=== PATIENT | male | born 1970 | race Caucasian/White ===

== ENCOUNTER 2020-04-08 04:46 | Emergency (ER) | payer SELFPAY ==
[~2020-04-08] VITALS: Ht 167.6 cm; Wt 74.8 kg
[2020-04-08 05:01] LABS: BILIRUBIN NEGATIVE; BLOOD NEGATIVE (NEGATIVE); CLARITY CLEAR (CLEAR); COLOR YELLOW (YELLOW); GLUCOSE NEGATIVE; KETONE NEGATIVE; LEUKO ESTERASE NEGATIVE (NEGATIVE); NITRITE NEGATIVE (NEGATIVE)
[2020-04-08 05:08] LABS: BACTERIA TRACE; EPITHELIAL CELLS 0-2; HYALINE CAST 16-20; MUCOUS 1+; WBC 0-2 wbc/hpf (0-5)
[2020-04-08 05:09] LABS: URINE AMPHETAMINES > 1000 (1000ng/ml); URINE BARBITURATES < 200 (200ng/ml); URINE BENZODIAZEPINES < 200 (200ng/ml); URINE CANNABINOIDS (THC) > 50 (50ng/ml); URINE COCAINE < 300 (300ng/ml); URINE METHADONE < 300 (300ng/ml); URINE OPIATES < 300 (300ng/ml); URINE PHENCYCLIDINE < 25 (25ng/ml)
== END 2020-04-08 05:48 | disposition left against medical advice (07) ==
LOC: ED 04:46
PROVIDERS: Emergency Medicine
DX: R61 Generalized hyperhidrosis (principal); F41.9 Anxiety disorder, unspecified; I10 Essential (primary) hypertension